=== PATIENT | male | born 1990 | race African-American/Black ===

== ENCOUNTER 2017-06-12 22:15 | Emergency (ER) | payer SELFPAY ==
[~2017-06-12] VITALS: Ht 188 cm; Wt 95.3 kg
[2017-06-12 22:19] VITALS: BP 139/74
--- NOTE | 2017-06-12 22:26 | ED THROAT/DENTAL COMPLAINT ---
History of Present Illness General Chief Complaint: Ear Complaints Stated Complaint: PT IS HERE FOR RT EAR SWOLLEN Source: patient, family, old records Exam Limitations: no limitations Vital Signs & Intake/Output Vital Signs & Intake/Output Vital Signs Date Time Temp Pulse Resp B/P B/P Pulse O2 O2 Flow FiO2 Mean Ox Delivery Rate 06/12 2219 98.9 88 18 139/74 98 Room Air Room Air ED Intake and Output 06/13 0000 06/12 1200 Intake Total 0 Output Total Balance 0 Intake, Oral 0 Patient 210 lb Weight Allergies Coded Allergies: No Known Allergies (01/20/17) Reconcile Medications Amoxicillin/Potassium Clav (Augmentin 875-125 Tablet) 875 MG-125 MG TABLET 1 TAB PO BID infection Ofloxacin (Ocuflox) 0.3 % DROPS 1 GTT OTIC 4 TIMES/DAY otitis Triage Note: RECEIVED 24 YO MALE C/O LEFT EAR SWOLLEN AND PAINFUL X ONE DAY. PT STATES IT HAS HAPPENED BEFORE AND IS GIVEN ANTIBIOTICS AND IT CLEARS UP. Triage Nurses Notes Reviewed? yes Onset: Abrupt Duration: day(s): (1), constant Timing: recent history Injury Environment: home Severity: moderate Severity Numbers: 7 No Modifying Factors: none Associated Symptoms: denies HPI: 27-year-old male presents to ER for evaluation going left-sided facial swelling left ear pain for the past 1 day. He reports history of similar episodes in the past for which she is require antibiotics. He states the system from a cracked lower left tooth. No recent dental work. Forces subjective fever chills. No recent trauma. He denies any discharge from his ear no right-sided ear pain no sore throat rhinorrhea congestion and headache chest pain abdominal pain (Ash Lanza) Past History Travel History Traveled to [place] past 21 day No Medical History Any Pertinent Medical History? 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 No (Ash Lanza) Review of Systems Review of Systems Constitutional: Reports: see HPI. Comments Review of systems: See HPI, All other systems negative. Constitutional, chills fever, no malaise no weight loss HEENT: sore throat no congestion, ear pain Cardiovascular: No chest pain , Skin: no rashes, no change in skin Respiratory: No dyspnea no cough no sputum GI: No nausea no vomiting Muscle skeletal: No joint pain, no back pain, no neck pain, Neurologic: , no headache Heme/endocrine: No bruising (Ash Lanza) Physical Exam Physical Exam General Appearance: well developed/nourished, no apparent distress, alert Mouth/Throat: pharynx normal, dental tenderness Comments: Well-developed well-nourished patient in no apparent distress. Head/Face: Atraumatic, no maxillary/frontal sinus tenderness, left facial swelling Eyes: PERRL, EOMI, no conjunctival injection. No nystagmus Ear: Left External auditory canal is swollen erythematous, Tympanic membranes clear, no erythema, no FB. Nose: atraumatic.Normal inspection: No bleeding, no septal hematoma Throat: Multiple carious teeth Moist mucous membranes.Pharynx normal. No pharyngeal erythema/exudate seen. No stridor/drooling or assymetry. No swelling or edema. Neck: Supple, anterior cervical lymphadenopathy, FROM Back: FROM Cardiovascular: Regular rate and rhythms no murmur Respiratory:. No respiratory distress. Patient speaking in full complete sentences. Breath sounds clear to auscultation bilaterally: NO W/R/R Extremities: full range of motion Neuro: awake, alert, and oriented to person, place and time. There were no obvious focal neurologic abnormalities. Skin: Warm & dry;No appreciable rash on exposed skin Psych: Mood affect normal, normal memory normal judgment. Core Measures ACS in differential dx? No Sepsis Present: No Sepsis Focused Exam Completed? No (Ash Lanza) Progress Differential Diagnosis: carious tooth, epiglottitis, odontogenic abscess, nixon- tonsillar abscess, tooth fracture, otitis externa/media, cellulitis, sialednolithiasis, sialadenitisi Plan of Care: I discussed with the patient at length plan of care I had an extensive conversation regarding need for close follow up with their primary care physician this week as well as return precautions. Patient will return in 48 hours for wound check return precautions were discussed at length however at anytime sooner I answered all of their questions, they feel comfortable with the plan and follow-up care. I discussed with the patient/family the medications that they will receive. I gave them signs and symptoms that could indicate an adverse reaction. I have advised them to limit their activities until they can see how they respond to the medication. (Ash Lanza) Departure Departure Time of Disposition: 2236 Disposition: HOME OR SELF CARE Condition: Stable Clinical Impression Primary Impression: Facial cellulitis Secondary Impressions: Otitis externa Referrals: Patient Has No Primary Care Dr (PCP/Family) Additional Instructions: Follow-up with DENTAL clinic list. Augmentin as directed. Interchange Tylenol Motrin every 4-6 hours cool compresses. ofloxacin ear drops as discussed Departure Forms: Customer Survey General Discharge Information Prescriptions: Current Visit Scripts Amoxicillin/Potassium Clav (Augmentin 875-125 Tablet) 1 TAB PO BID #20 TAB Ofloxacin (Ocuflox) 1 GTT OTIC 4 TIMES/DAY #5 ML (Ahs Lanza) PA/BOMBSIGHT SPECIALIST Co-Sign Statement Statement: ED Attending supervision documentation- [] I saw and evaluated the patient. I have also reviewed all the pertinent lab results and diagnostic results. I agree with the findings and the plan of care as documented in the PA's/BOMBSIGHT SPECIALIST's documentation. [X] I have reviewed the ED Record and agree with the PA's/BOMBSIGHT SPECIALIST's documentation. [] Additions or exceptions (if any) to the PAs/BOMBSIGHT SPECIALIST's note and plan are summarized below: [] (Ronak Klein DO
[2017-06-12] MEDS ORDERED: OCUFLOX5 ML OTIC (22:39)
[2017-06-12] MEDS ORDERED: AUGMENTIN 875-1 EACH PO (22:39)
== END 2017-06-12 22:55 ==
LOC: ERH 22:15
DX: L03.211 Cellulitis of face (principal); H60.92 Unspecified otitis externa, left ear